=== PATIENT | male | born 1955 | race Caucasian/White ===

== ENCOUNTER 2021-06-24 16:21 | Inpatient (IN) | payer BC ==
[2021-06-24] MEDS ORDERED: SODIUM CHLORIDE 1,000 ML IV STA (16:55)
[2021-06-24 17:20] LABS: BASO % 2.6 % (0-2.0); HEMATOCRIT 42.9 % (35.4-49); HEMOGLOBIN 14.6 GM/dl (11.7-16.9); MCH 32.9 pg (25.7-33.7); MEAN CELL VOLUME 96.8 fl (80-96); MEAN PLT VOLUME 9.9 fl (7.5-11.1); MONO % 8.5 % (3.8-10.2); NEUT % 68.9 % (42.8-82.8); PLATELET COUNT 123 10^3/uL (134-434); RBC 4.44 M/mm3 (4.00-5.60); RDW 12.1 % (11.9-15.9); WHITE BLOOD COUNT 10.1 K/mm3 (4.0-10.8)
[2021-06-24 17:39] LABS: ALBUMIN 3.9 g/dl (3.4-5.0); BILIRUBIN,TOTAL 1.1 mg/dl (0.2-1); CALCIUM 9.1 mg/dl (8.5-10); CREATININE 0.9 mg/dl (0.55-1.3); TOT PROT 6.2 g/dl (6.4-8.2)
[2021-06-24] MEDS ORDERED: AMOX TR/POT CLAV 875MG/125MG TABLETS (FP) PO ONE (23:52)
[2021-06-25] MEDS ORDERED: ACETAMINOPHEN 1000 MG/100 ML VIAL IVPB PRN (00:20)
[2021-06-25] MEDS ORDERED: LACTATED RINGERS SOLUTION 1,000 ML IV SCH (00:30)
[2021-06-25 00:33] VITALS: BMI 31.3
[2021-06-25 07:48] LABS: BASO % 2.3 % (0-2.0); EOS % 2.3 % (0-4.5); HEMATOCRIT 39.2 % (35.4-49); HEMOGLOBIN 13.4 GM/dl (11.7-16.9); LYMPH % 24.1 % (8-40); MCH 32.6 pg (25.7-33.7); MCHC 34.3 g/dl (32.0-35.9); MEAN CELL VOLUME 95.1 fl (80-96); MEAN PLT VOLUME 11.2 fl (7.5-11.1); MONO % 10.5 % (3.8-10.2); NEUT % 60.8 % (42.8-82.8); PLATELET COUNT 139 10^3/uL (134-434); RBC 4.12 M/mm3 (4.00-5.60); RDW 11.6 % (11.9-15.9); WHITE BLOOD COUNT 7.6 K/mm3 (4.0-10.8)
[2021-06-25 07:56] LABS: CALCIUM 8.7 mg/dl (8.5-10); CREATININE 0.9 mg/dl (0.55-1.3)
[2021-06-25] MEDS: PANTOPRAZOLE SODIUM 40 MG VIAL IVPUSH SCH (10:08)
[2021-06-25 10:29] LABS: ALBUMIN 3.5 g/dl (3.4-5.0); BILIRUBIN,TOTAL 1.1 mg/dl (0.2-1); CALCIUM 8.8 mg/dl (8.5-10); CREATININE 0.9 mg/dl (0.55-1.3); TOT PROT 5.5 g/dl (6.4-8.2)
[2021-06-25] MEDS: ENOXAPARIN NA (PORCINE) 40 MG/0.4 ML DISP.SYRIN SQ SCH (13:32)
[2021-06-26 08:10] LABS: HEMATOCRIT 38.3 % (35.4-49); HEMOGLOBIN 13.4 GM/dl (11.7-16.9); MCH 33.3 pg (25.7-33.7); MCHC 34.9 g/dl (32.0-35.9); MEAN CELL VOLUME 95.4 fl (80-96); MEAN PLT VOLUME 9.7 fl (7.5-11.1); PLATELET COUNT 110 10^3/uL (134-434); RBC 4.02 M/mm3 (4.00-5.60); RDW 11.4 % (11.9-15.9); WHITE BLOOD COUNT 6.4 K/mm3 (4.0-10.8)
[2021-06-26 08:14] LABS: ALBUMIN 3.3 g/dl (3.4-5.0); CALCIUM 8.7 mg/dl (8.5-10); CREATININE 0.8 mg/dl (0.55-1.3); MAGNESIUM 2.1 mg/dL (1.8-2.4); TOT PROT 5.3 g/dl (6.4-8.2)
[2021-06-26 09:10] VITALS: BP 115/54; PULSE 52; TEMP 98.5
[2021-06-26 09:34] LABS: PLATELET ESTIMATE SLT DECREASE
[2021-06-26] MEDS: ENOXAPARIN NA (PORCINE) 40 MG/0.4 ML DISP.SYRIN SQ SCH (10:54)
[2021-06-26] MEDS: PANTOPRAZOLE SODIUM 40 MG VIAL IVPUSH SCH (10:55)
== END 2021-06-26 13:43 | disposition home or self-care (01) | DRG 440 ==
LOC: FER 16:21 → FM/S 06-25 00:07
PROVIDERS: ADMIT Internal Medicine; ATTEND Nurse Practitioner Acute Care
DX: K85.90 Acute pancreatitis without necrosis or infection, unspecified (principal); K21.9 Gastro-esophageal reflux disease without esophagitis
CPT/HCPCS: 36415; 71045-TC-FY; 74177-TC; 76705-TC; 80048; 80053; 81003; 82150; 83690; 83735; 84478; 85025; 86301; 93005; 99285-25; C9803; Q9967; U0003; U0005